=== PATIENT | male | born 1945 | race Two or more races ===

== ENCOUNTER 2021-06-13 20:38 | Inpatient (IN) | payer MEDICARE, OTHER ==
[~2021-06-13] VITALS: Ht 185.4 cm; Wt 81.6 kg
--- NOTE | 2021-06-13 20:57 | NUR ---
SENIOR STORAGE ADMINISTRATOR AT PT'S BEDSIDE
--- NOTE | 2021-06-13 21:01 | NUR ---
COVID SWAB COLLECTED AND SENT TO LAB
[2021-06-13] MEDS ORDERED: AMLO2.5T2 PO (21:05)
[2021-06-13] MEDS ORDERED: CYAN10006 IM (21:05)
[2021-06-13] MEDS ORDERED: DOCU100C36 PO (21:05)
[2021-06-13] MEDS ORDERED: DIVA250T PO (21:05)
--- NOTE | 2021-06-13 21:08 | NUR ---
PT TAKEN TO CT VIA [facility]
[2021-06-13 21:13] LABS: BASOPHILS # (AUTO) 0.1 K/uL (0.0-0.2); BASOPHILS % (AUTO) 1.3 % (0.0-2.0); EOSINOPHILS % (AUTO) 1.7 % (0.0-6.0); HEMATOCRIT 41 % (39-51); HEMOGLOBIN 14.1 g/dL (13.5-17.5); LYMPHOCYTES # (AUTO) 1.1 K/uL (0.8-4.8); LYMPHOCYTES % (AUTO) 20.7 % (20.0-44.0); MEAN CORPUSCULAR HGB CONC 34 g/dl (31.0-36.0); MEAN CORPUSCULAR VOLUME 98 fL (80-96); MONOCYTES # (AUTO) 0.6 K/uL (0.1-1.30); MONOCYTES % (AUTO) 11.5 % (2.0-12.0); NEUTROPHILS # (AUTO) 3.4 K/uL (1.8-8.9); NEUTROPHILS % (AUTO) 64.8 % (43.0-81.0); PLATELET COUNT (AUTO) 160 K/uL (150-450); RED BLOOD CELL COUNT(AUTO) 4.21 MIL/uL (4.5-6.0); WHITE BLOOD COUNT (AUTO) 5.2 K/uL (4.3-11.0)
--- NOTE | 2021-06-13 21:30 | NUR ---
URINE COLLECTED AND SENT TO LAB
--- NOTE | 2021-06-13 21:30 | NUR ---
MRSA SWAB COLLECTED AND SENT TO LAB. PATIENT'S BELONGINGS LIST DONE.
[2021-06-13 21:48] LABS: CALCIUM, SERUM 9.1 mg/dL (8.5-10.1); CARBON DIOXIDE 25 mmol/L (21-32); CHLORIDE 106 mmol/L (98-107); CREATININE 1.2 mg/dL (0.6-1.3); GLUCOSE 85 mg/dL (74-106); POTASSIUM 3.6 mmol/L (3.5-5.1); SODIUM SERUM 138 mmol/L (136-145); UREA NITROGEN, BLOOD 24 mg/dL (7-18)
[2021-06-13 21:54] LABS: ALANINE AMINOTRANSFERASE 27 U/L (12-78); ALBUMIN 3.3 g/dL (3.4-5.0); ALCOHOL, BLOOD < 3 mg/dL (0-0); ALKALINE PHOSPHATASE 71 U/L (46-116); ASPARTATE AMINOTRANSFERASE 17 U/L (15-37); BILIRUBIN,DIRECT 0.1 mg/dL (0.0-0.2); BILIRUBIN,TOTAL 0.5 mg/dL (0.2-1.0); TOTAL PROTEIN, SERUM 7.1 g/dL (6.4-8.2)
--- NOTE | 2021-06-13 22:03 | NUR ---
CALLED [facility] FOR PSYCH EVAL
[2021-06-13 22:08] LABS: BILIRUBIN,URINE NEGATIVE (NEGATIVE); COLOR,URINE YELLOW (YELLOW); LEUKOCYTE ESTERASE ,URINE NEGATIVE (NEGATIVE); NITRITE, URINE NEGATIVE (NEGATIVE); PROTEIN,URINE NEGATIVE (NEGATIVE); UGLUCOSE NEGATIVE (NEGATIVE); UROBILINOGEN,URINE 0.2 EU/dL (0.2)
--- NOTE | 2021-06-13 23:20 | NUR ---
ART, CLSW AT THE BED SIDE
--- NOTE | 2021-06-13 23:23 | NUR ---
Sanya gastelum in [facility] - 06/13/21 at 2358 by JOSE DENANA ORTEGA ASSESSMENT IN PROCESS
--- NOTE | 2021-06-13 23:27 | NUR ---
REPORT GIVEN TO MONTRELL BRAVO
--- NOTE | 2021-06-14 00:14 | NUR ---
TRANSFERRED TO GPS IN STABLE CONDITION
[2021-06-14] MEDS ORDERED: MAGNESIUM HYDROXIDE 30 ML UDC PO PRN (00:30)
[2021-06-14] MEDS ORDERED: MAG HYDROX/AL HYDROX/SIMETH 30 ML UDC PO PRN (00:30)
[2021-06-14] MEDS ORDERED: BLOOD SUGAR DIAGNOSTIC 1 EACH STRIP IN ONE (00:30)
[2021-06-14] MEDS: TEMAZEPAM 7.5 MG CAPSULE PO PRN ×2 (01:04→21:36)
--- NOTE | 2021-06-14 01:08 | NUR ---
GPS RN NOTES: RESTORIL 7.5MG GIVEN FOR SLEEP AT 0104. WILL CONTINUE TO MONITOR.
[2021-06-14] MEDS: ACETAMINOPHEN 325 MG TABLET PO PRN ×2 (01:13→21:02)
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
[2021-06-14] MEDS ORDERED: MAGN400O6 PO (07:57)
[2021-06-14] MEDS ORDERED: ACET-868 PO ×2 (07:57)
[2021-06-14 08:00] VITALS: BP 124/70
[2021-06-14] MEDS: AMLODIPINE BESYLATE 2.5 MG TABLET PO SCH (08:29)
[2021-06-14] MEDS: DOCUSATE SODIUM 100 MG CAPSULE PO SCH (08:29)
[2021-06-14] MEDS ORDERED: CYANOCOBALAMIN 1,000 MCG/ML VIAL IM SCH ×2 (09:00)
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
--- NOTE | 2021-06-14 09:59 | NUR ---
PANCHO Initial Discharge Note: Patient currently resides at [facility] located at [address] [place] [address]; ([phone]). PANCHO contacted Grant Devlin ([phone]) who stated that pt is welcomed back upon dc. PANCHO will work with the MD, treatment team, and family to help coordinate appropriate discharge.
--- NOTE | 2021-06-14 10:14 | NUR ---
PANCHO Family Contact: PANCHO contacted patient's son Rob ([phone]) and notified of pt's admission. SW left a detailed voicemail. PANCHO contacted patient's next of Kin Tonie ([phone]) and left a detailed voicemail.
--- NOTE | 2021-06-14 10:57 | NUR ---
PANCHO Family Contact: PANCHO spoke with Tonie pt's ex- ([phone]) who is notified of pt's admission and treatment/discharge plan. She expressed that she is the DPOA and will send the documents. She would want pt back to [place] when pt is stable.
[2021-06-14] MEDS: LORAZEPAM 0.5 MG TABLET PO PRN ×2 (11:13→17:56)
--- NOTE | 2021-06-14 11:16 | NUR ---
ATIVAN 0.5MG GIVEN FOR AGITATION. WILL CONTINUE TO MONITOR.
--- NOTE | 2021-06-14 12:28 | NUR ---
DR MOLINA CONTACTED WITH REGARDS TO DNR POLST. T/O GIVEN TO UPDATE CODE STATUS ACCORDINGLY.
[2021-06-14] MEDS: DIVALPROEX SODIUM 125 MG CAP.SPRINK PO SCH ×2 (13:25→17:13)
[2021-06-14 16:00] VITALS: BP 128/71
[2021-06-14] MEDS: risperiDONE 1 MG TABLET PO SCH (17:13)
--- NOTE | 2021-06-14 17:56 | NUR ---
ATIVAN 0.5MG GIVEN FOR AGITATION. WILL CONTINUE TO MONITOR.
[2021-06-14 20:00] VITALS: BP 117/75
--- NOTE | 2021-06-14 21:03 | NUR ---
GPS RN NOTES: PATIENT C/O BL KNEE PAIN. TYLENOL 650MG GIVEN PO AT 2102. WILL CONTINUE TO MONITOR.
--- NOTE | 2021-06-14 21:49 | NUR ---
GPS RN NOTES: RESTORIL 7.5MG GIVEN FOR SLEEP AT 6. WILL CONTINUE TO MONITOR.
--- NOTE | 2021-06-14 22:30 | NUR ---
GPS RN NOTES: UNABLE TO COLLECT URINE SAMPLE FROM PATIENT. PATIENT ALREADY VOIDED IN HIS DIAPER. WILL TRY AGAIN AND ENDORSE TO AM SHIFT.
[2021-06-15] MEDS: LORAZEPAM 0.5 MG TABLET PO PRN ×3 (04:24→21:56)
--- NOTE | 2021-06-15 04:28 | NUR ---
GPS RN NOTES: PATIENT ANXIOUS, RESTLESS, CONFUSED, AGITATED. ATIVAN 0.5MG 1TAB GIVEN PO AT 0424. WILL CONTINUE TO MONITOR.
[2021-06-15 07:27] LABS: ALBUMIN 3.5 g/dL (3.4-5.0); BILIRUBIN,TOTAL 0.7 mg/dL (0.2-1.0); CALCIUM, SERUM 9.5 mg/dL (8.5-10.1); CREATININE 1.1 mg/dL (0.6-1.3); POTASSIUM 3.4 mmol/L (3.5-5.1); TOTAL PROTEIN, SERUM 7.3 g/dL (6.4-8.2)
[2021-06-15 08:00] VITALS: BP 116/66
[2021-06-15] MEDS: DOCUSATE SODIUM 100 MG CAPSULE PO SCH (08:39)
[2021-06-15] MEDS: DIVALPROEX SODIUM 125 MG CAP.SPRINK PO SCH ×3 (08:39→16:43)
[2021-06-15] MEDS: risperiDONE 1 MG TABLET PO SCH ×3 (08:40→16:43)
[2021-06-15] MEDS: AMLODIPINE BESYLATE 2.5 MG TABLET PO SCH (08:40)
[2021-06-15 09:42] LABS: CHOLESTEROL 114 mg/dL (<200); HDL CHOLESTEROL 44 mg/dL (40-60); LDL 64 mg/dL (0-99); TRIGLYCERIDES 72 mg/dL (30-150)
--- NOTE | 2021-06-15 10:08 | NUR ---
DPOA DOCUMENTS: SW received DPOA documents from [facility] that ex- Tonie is DPOA. SW placed in pt's chart.
--- NOTE | 2021-06-15 11:29 | NUR ---
ATIVAN 0.5 MG FOR AGITATION GIVEN. WILL CONTINUE TO MONITOR.
[2021-06-15] MEDS ORDERED: POTASSIUM CHLORIDE 20 MEQ TAB.PRT.SR PO SCH (13:00)
--- NOTE | 2021-06-15 15:30 | NUR ---
CONDOM CATHETER IN PLACE TO COLLECT URINE SAMPLE.
[2021-06-15 16:00] VITALS: BP 114/76
--- NOTE | 2021-06-15 16:40 | NUR ---
URINE COLLECTED SUCCESSFULLY. CONDOM CATHETER REMOVED AND DISPOSED. PENIS GLANS INTACT.
[2021-06-15 17:44] LABS: BILIRUBIN,URINE NEGATIVE (NEGATIVE); COLOR,URINE YELLOW (YELLOW); LEUKOCYTE ESTERASE ,URINE NEGATIVE (NEGATIVE); NITRITE, URINE NEGATIVE (NEGATIVE); PROTEIN,URINE NEGATIVE (NEGATIVE); UGLUCOSE NEGATIVE (NEGATIVE); UROBILINOGEN,URINE 0.2 EU/dL (0.2)
[2021-06-15 20:00] VITALS: BP 124/71
[2021-06-15] MEDS: TEMAZEPAM 7.5 MG CAPSULE PO PRN (20:13)
[2021-06-16 08:00] VITALS: BP 152/98
[2021-06-16] MEDS: DOCUSATE SODIUM 100 MG CAPSULE PO SCH (08:39)
[2021-06-16] MEDS: AMLODIPINE BESYLATE 2.5 MG TABLET PO SCH (08:39)
[2021-06-16] MEDS: DIVALPROEX SODIUM 125 MG CAP.SPRINK PO SCH ×3 (08:40→16:22)
[2021-06-16] MEDS: risperiDONE 1 MG TABLET PO SCH ×3 (08:40→16:22)
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
[2021-06-16 16:00] VITALS: BP 112/62
[2021-06-16 20:00] VITALS: BP 116/73
[2021-06-16] MEDS: TEMAZEPAM 7.5 MG CAPSULE PO PRN (20:30)
--- NOTE | 2021-06-16 20:31 | NUR ---
Restoril 7.5 mg - capsule given to pt PRN for sleep, pt compliant and took medication.
[2021-06-16] MEDS: Z GUARD REMEDY 4 OZ OINT TP PRN (20:34)
[2021-06-16] MEDS: Z GUARD REMEDY 4 OZ OINT TP SCH (20:34)
--- NOTE | 2021-06-16 21:40 | NUR ---
1 hr post- PRN Restoril- pt still wide awake, provided pt quiet environment , kept pt clean and dry, will cont to monitor and anticipate needs
[2021-06-16] MEDS: LORAZEPAM 0.5 MG TABLET PO PRN (22:17)
--- NOTE | 2021-06-16 22:18 | NUR ---
PRN Ativan 0.5 mg /tab given to pt for episode of anxiety and agitation. Will cont to monitor
--- NOTE | 2021-06-17 00:35 | NUR ---
Pt remains awake,appears calm @ this time. Cont to monitor.
--- NOTE | 2021-06-17 02:15 | NUR ---
Pt only slept for few mins and now awake again, getting anxious and agitated. Cont to monitor closely.
--- NOTE | 2021-06-17 06:34 | NUR ---
Pt slept only approx 1 hr during shift, pt in his bed at this time, am care provided by manufacturing maintenance technician, bed alarm on, safety side rails up x 2 , bed lock and at lowest position. PT awake and calm - no s/sx of acute resp distress. Will endorse care to oncoming am nurse.
[2021-06-17 08:00] VITALS: BP 110/63
[2021-06-17] MEDS: risperiDONE 1 MG TABLET PO SCH ×4 (08:43→21:32)
[2021-06-17] MEDS: DOCUSATE SODIUM 100 MG CAPSULE PO SCH (10:16)
[2021-06-17] MEDS: DIVALPROEX SODIUM 125 MG CAP.SPRINK PO SCH ×3 (10:16→16:28)
[2021-06-17] MEDS: Z GUARD REMEDY 4 OZ OINT TP PRN (10:17)
[2021-06-17] MEDS: AMLODIPINE BESYLATE 2.5 MG TABLET PO SCH (10:17)
[2021-06-17] MEDS: Z GUARD REMEDY 4 OZ OINT TP SCH ×2 (10:18→21:28)
[2021-06-17 16:00] VITALS: BP 117/69
--- NOTE | 2021-06-17 16:23 | NUR ---
RN-NOTES RECEIVED T.O ORDER FROM DR. ADAM TO CHANGE RISPERDAL 1MG P.O TO Q HS INSTEAD OF 1700. NOTED AND CARRIED OUT.
--- NOTE | 2021-06-17 19:30 | NUR ---
GPS FLOAT RN OPENING NOTES PATIENT APPEARS CALM, RECEIVED IN TOM CHAIR. NO S/S OF APPARENT DISTRESS ON ROOM AIR. NOT EXHIBITING PAIN VIA FLACC. WILL CONTINUE TO MONITOR, ASSESS, AND RE-DIRECT PATIENT. WILL IMPLEMENT PLAN OF CARE PATIENT'S CONDITION PERMITS. WILL COLLABORATE WITH THERAPEUTIC TEAM TO REACH PATIENT'S GOAL AND DO Q15 VISUAL CHECKS TO ENSURE PATIENT SAFETY.
[2021-06-17 19:59] VITALS: BP 114/65
[2021-06-17 20:00] VITALS: BP 114/65
[2021-06-17] MEDS: TEMAZEPAM 7.5 MG CAPSULE PO SCH (21:32)
[2021-06-17] MEDS: LORAZEPAM 0.5 MG TABLET PO PRN (23:27)
--- NOTE | 2021-06-17 23:35 | NUR ---
GPS FLOAT RN NOTE PATIENT GETTING MORE AND MORE RESTLESS. GIVEN ATIVAN 0.5 AND ENCOURAGED MORE WATER INTAKE.
[2021-06-18 08:00] VITALS: BP 99/61
[2021-06-18] MEDS: DIVALPROEX SODIUM 125 MG CAP.SPRINK PO SCH ×3 (08:33→16:30)
[2021-06-18] MEDS: AMLODIPINE BESYLATE 2.5 MG TABLET PO SCH (08:33)
[2021-06-18] MEDS: risperiDONE 1 MG TABLET PO SCH ×4 (08:33→21:18)
[2021-06-18] MEDS: DOCUSATE SODIUM 100 MG CAPSULE PO SCH (08:33)
[2021-06-18] MEDS: Z GUARD REMEDY 4 OZ OINT TP SCH ×2 (08:58→21:17)
--- NOTE | 2021-06-18 09:53 | NUR ---
RN-NOTES SEEN PT. LEFT FOOT REDNESS AND STATED HE WILL PUT ORDERS.
[2021-06-18] MEDS: ENOXAPARIN SODIUM 40 MG/0.4 ML DISP.SYRIN SQ SCH (10:59)
[2021-06-18 16:00] VITALS: BP 128/68
--- NOTE | 2021-06-18 19:30 | NUR ---
GPS RN NOTE, RECEIVED PATIENT AWAKE AND IN BED, NO S/S OR COMPLAINTS OF PAIN AT THIS TIME. PATIENT IS DISPLAYING NO S/S OF APPARENT DISTRESS AT THIS TIME. PATIENT BREATHING IS UNLABORED WITH EQUAL RISE AND FALL OF THE CHEST. PATIENT IS ALERT AND ORIENTED X 1 ON ROOM AIR WITH A SPO2 95%. PATIENT IS COMPLIANT WITH MEDICATIONS, ANXIOUS, PARANOID, CONFUSED AT TIMES, EASILY IRRITABLE, AND COOPERATIVE. PATIENT DENIES SUICIDAL AND HOMICIDAL IDEATIONS AT THIS TIME. PATIENT ASSISTED WITH TURNING AND REPOSITIONING Q2HR AND PRN FOR COMFORT AND CIRCULATION. PATIENT HAS NO NEEDS AT THIS TIME. PATIENT EDUCATED ON THE USE OF THE CALL NUR. PATIENT BED SIDE RAILS UP X 2 FOR SAFETY. PATIENT BED IS LOCKED, LOW, WITH BED ALARM ON. WILL CONTINUE TO MONITOR THIS PATIENT Q15 MINUTES WITH THE HELP OF STAFF TO MAINTAIN SAFETY.
[2021-06-18 20:03] VITALS: BP 114/66
[2021-06-18] MEDS: TEMAZEPAM 7.5 MG CAPSULE PO SCH (21:18)
--- NOTE | 2021-06-18 21:18 | NUR ---
GPS RN NOTE, PATIENT HAS A SCHEDULED DOSE OF RESTORIL AT THIS TIME. PATIENT VITAL SIGNS ARE STABLE. GAVE RESTORIL 7.5MG PO HS ORDERED. WILL REASSESS FOR INSOMNIA AND I WILL CONTINUE TO MONITOR THIS PATIENT WITH THE HELP OF STAFF.
[2021-06-19 08:00] VITALS: BP 157/95
[2021-06-19] MEDS: Z GUARD REMEDY 4 OZ OINT TP SCH ×2 (08:56→21:01)
[2021-06-19] MEDS: AMLODIPINE BESYLATE 2.5 MG TABLET PO SCH (08:58)
[2021-06-19] MEDS: DOCUSATE SODIUM 100 MG CAPSULE PO SCH (08:58)
[2021-06-19] MEDS: DIVALPROEX SODIUM 125 MG CAP.SPRINK PO SCH ×3 (08:58→17:00)
[2021-06-19] MEDS: risperiDONE 1 MG TABLET PO SCH ×4 (08:58→21:02)
[2021-06-19] MEDS: ENOXAPARIN SODIUM 40 MG/0.4 ML DISP.SYRIN SQ SCH (13:11)
[2021-06-19 16:00] VITALS: BP 150/97
[2021-06-19 20:54] VITALS: BP 112/86
[2021-06-19] MEDS: TEMAZEPAM 7.5 MG CAPSULE PO SCH (21:02)
[2021-06-20 08:00] VITALS: BP 102/57
[2021-06-20] MEDS: risperiDONE 1 MG TABLET PO SCH ×4 (08:00→21:35)
[2021-06-20] MEDS: AMLODIPINE BESYLATE 2.5 MG TABLET PO SCH (08:50)
[2021-06-20] MEDS: DOCUSATE SODIUM 100 MG CAPSULE PO SCH (08:50)
[2021-06-20] MEDS: DIVALPROEX SODIUM 125 MG CAP.SPRINK PO SCH ×3 (08:50→17:02)
[2021-06-20] MEDS: Z GUARD REMEDY 4 OZ OINT TP SCH ×2 (08:51→21:34)
[2021-06-20 11:18] LABS: BASOPHILS % (AUTO) 0.2 % (0.0-2.0); EOSINOPHILS % (AUTO) 0.5 % (0.0-6.0); HEMATOCRIT 40 % (39-51); HEMOGLOBIN 13.6 g/dL (13.5-17.5); LYMPHOCYTES # (AUTO) 0.5 K/uL (0.8-4.8); LYMPHOCYTES % (AUTO) 8.2 % (20.0-44.0); MEAN CORPUSCULAR HGB CONC 34 g/dl (31.0-36.0); MEAN CORPUSCULAR VOLUME 98 fL (80-96); MONOCYTES # (AUTO) 0.7 K/uL (0.1-1.30); MONOCYTES % (AUTO) 12.4 % (2.0-12.0); NEUTROPHILS # (AUTO) 4.5 K/uL (1.8-8.9); NEUTROPHILS % (AUTO) 78.7 % (43.0-81.0); PLATELET COUNT (AUTO) 141 K/uL (150-450); RED BLOOD CELL COUNT(AUTO) 4.08 MIL/uL (4.5-6.0); WHITE BLOOD COUNT (AUTO) 5.7 K/uL (4.3-11.0)
--- NOTE | 2021-06-20 11:30 | NUR ---
Court Hearing: Patient's court hearing for 4730 was today and it was upheld for GD.
[2021-06-20 11:34] LABS: BILIRUBIN,TOTAL 0.8 mg/dL (0.2-1.0); CALCIUM, SERUM 8.6 mg/dL (8.5-10.1); CREATININE 1.2 mg/dL (0.6-1.3); MAGNESIUM 2.7 mg/dL (1.8-2.4); POTASSIUM 3.6 mmol/L (3.5-5.1); TOTAL PROTEIN, SERUM 6.7 g/dL (6.4-8.2)
[2021-06-20] MEDS: ENOXAPARIN SODIUM 40 MG/0.4 ML DISP.SYRIN SQ SCH (11:41)
[2021-06-20 16:00] VITALS: BP 104/67
[2021-06-20] MEDS: LORAZEPAM 0.5 MG TABLET PO PRN (17:37)
--- NOTE | 2021-06-20 17:37 | NUR ---
GPS RN NOTES PATIENT AGITATED, DOES NOT FOLLOW COMMAND. PRN ATIVAN ADMINISTERED.
--- NOTE | 2021-06-20 19:30 | NUR ---
GPS RN NOTE, RECEIVED PATIENT AWAKE AND IN BED, NO S/S OR COMPLAINTS OF PAIN AT THIS TIME. PATIENT IS DISPLAYING NO S/S OF APPARENT DISTRESS AT THIS TIME. PATIENT BREATHING IS UNLABORED WITH EQUAL RISE AND FALL OF THE CHEST. PATIENT IS ALERT AND ORIENTED X 1. PATIENT IS COMPLIANT WITH MEDICATIONS, ANXIOUS, PARANOID, CONFUSED AT TIMES, EASILY IRRITABLE, AND COOPERATIVE. PATIENT DENIES SUICIDAL AND HOMICIDAL IDEATIONS AT THIS TIME. PATIENT EDUCATED ON THE USE OF THE CALL NUR. PATIENT BED SIDE RAILS UP X 2 FOR SAFETY. PATIENT BED IS LOCKED, LOW, WITH BED ALARM ON. WILL CONTINUE TO MONITOR THIS PATIENT Q15 MINUTES WITH THE HELP OF STAFF TO MAINTAIN SAFETY. Addendum: 06/20/21 at 1931 by ALBERTO SHEPHERD RN CORRECTION PT IN TOM CHAIR IN ACTIVITY ROOM AT THIS TIME.
[2021-06-20 20:00] VITALS: BP 127/89
[2021-06-20] MEDS: TEMAZEPAM 7.5 MG CAPSULE PO SCH (21:35)
[2021-06-21 08:00] VITALS: BP 107/64
[2021-06-21] MEDS: risperiDONE 1 MG TABLET PO SCH ×4 (09:24→21:06)
[2021-06-21] MEDS: DIVALPROEX SODIUM 125 MG CAP.SPRINK PO SCH ×3 (09:25→17:00)
[2021-06-21] MEDS: DOCUSATE SODIUM 100 MG CAPSULE PO SCH (09:25)
[2021-06-21] MEDS: Z GUARD REMEDY 4 OZ OINT TP SCH ×2 (09:26→20:32)
[2021-06-21] MEDS: AMLODIPINE BESYLATE 2.5 MG TABLET PO SCH (09:26)
[2021-06-21] MEDS: ENOXAPARIN SODIUM 40 MG/0.4 ML DISP.SYRIN SQ SCH (11:18)
[2021-06-21 16:00] VITALS: BP 112/71
[2021-06-21 20:00] VITALS: BP 118/68
[2021-06-21] MEDS: LORAZEPAM 0.5 MG TABLET PO PRN (20:20)
[2021-06-21] MEDS: TEMAZEPAM 7.5 MG CAPSULE PO SCH (21:55)
[2021-06-22 08:00] VITALS: BP 125/68
[2021-06-22] MEDS: DIVALPROEX SODIUM 125 MG CAP.SPRINK PO SCH ×3 (08:30→16:21)
[2021-06-22] MEDS: risperiDONE 1 MG TABLET PO SCH ×3 (08:30→22:19)
[2021-06-22] MEDS: DOCUSATE SODIUM 100 MG CAPSULE PO SCH (08:30)
[2021-06-22] MEDS: AMLODIPINE BESYLATE 2.5 MG TABLET PO SCH (08:31)
[2021-06-22] MEDS: Z GUARD REMEDY 4 OZ OINT TP SCH ×2 (08:48→21:00)
[2021-06-22] MEDS: ENOXAPARIN SODIUM 40 MG/0.4 ML DISP.SYRIN SQ SCH (11:11)
[2021-06-22 16:00] VITALS: BP 143/87
[2021-06-22 20:00] VITALS: BP 112/51
[2021-06-22] MEDS: TEMAZEPAM 7.5 MG CAPSULE PO SCH (22:18)
[2021-06-23 08:00] VITALS: BP 119/69
[2021-06-23] MEDS: DOCUSATE SODIUM 100 MG CAPSULE PO SCH (08:44)
[2021-06-23] MEDS: AMLODIPINE BESYLATE 2.5 MG TABLET PO SCH (08:45)
[2021-06-23] MEDS: DIVALPROEX SODIUM 125 MG CAP.SPRINK PO SCH ×3 (08:45→16:56)
[2021-06-23] MEDS: risperiDONE 1 MG TABLET PO SCH ×3 (08:45→22:13)
[2021-06-23] MEDS: Z GUARD REMEDY 4 OZ OINT TP SCH ×2 (08:52→21:44)
[2021-06-23] MEDS: ENOXAPARIN SODIUM 40 MG/0.4 ML DISP.SYRIN SQ SCH (11:04)
[2021-06-23 16:00] VITALS: BP 116/64
[2021-06-23 20:00] VITALS: BP 133/86
[2021-06-23] MEDS: LORAZEPAM 0.5 MG TABLET PO PRN (20:18)
--- NOTE | 2021-06-23 20:21 | NUR ---
GPS RN NOTES: PATIENT IS RESTLESS, ANXIOUS, YELLING, CONFUSED, UNABLE TO FOLLOW REDIRECTIO. ATIVA 0.5MG GIVEN PO AT 2018. WILL CONTINUE TO MONITOR.
[2021-06-23] MEDS: TEMAZEPAM 7.5 MG CAPSULE PO SCH (22:13)
[2021-06-23] MEDS: ACETAMINOPHEN 325 MG TABLET PO PRN (22:15)
--- NOTE | 2021-06-24 06:44 | NUR ---
GPS RN CLOSING NOTES: PATIENT IS CURRENTLY SLEEPING IN BED. PATIENT SLEPT 7HR THIS SHIFT. NO S/S OF DISTRESS. RESPIRATION EVEN AND UNLABORED WITH EQUAL RISE AND FALL OF THE CHEST, ON ROOM AIR. ALL PATIENT CARE NEEDS HAVE BEEN MET AT THIS TIME. WILL CONTINUE TO MONITOR AND ENDORSE TO AM SHIFT.
[2021-06-24 08:00] VITALS: BP 109/65
[2021-06-24] MEDS: risperiDONE 1 MG TABLET PO SCH ×3 (08:53→21:30)
[2021-06-24] MEDS: DOCUSATE SODIUM 100 MG CAPSULE PO SCH (08:53)
[2021-06-24] MEDS: AMLODIPINE BESYLATE 2.5 MG TABLET PO SCH (08:53)
[2021-06-24] MEDS: DIVALPROEX SODIUM 125 MG CAP.SPRINK PO SCH ×3 (08:53→16:45)
[2021-06-24] MEDS: Z GUARD REMEDY 4 OZ OINT TP SCH ×2 (09:11→21:33)
[2021-06-24] MEDS: ENOXAPARIN SODIUM 40 MG/0.4 ML DISP.SYRIN SQ SCH (10:10)
[2021-06-24 11:12] LABS: BASOPHILS % (AUTO) 0.4 % (0.0-2.0); EOSINOPHILS % (AUTO) 1.1 % (0.0-6.0); HEMATOCRIT 40 % (39-51); HEMOGLOBIN 13.6 g/dL (13.5-17.5); LYMPHOCYTES # (AUTO) 0.6 K/uL (0.8-4.8); LYMPHOCYTES % (AUTO) 8.7 % (20.0-44.0); MEAN CORPUSCULAR HGB CONC 34 g/dl (31.0-36.0); MEAN CORPUSCULAR VOLUME 99 fL (80-96); MONOCYTES # (AUTO) 0.6 K/uL (0.1-1.30); MONOCYTES % (AUTO) 9.4 % (2.0-12.0); NEUTROPHILS # (AUTO) 5.3 K/uL (1.8-8.9); NEUTROPHILS % (AUTO) 80.4 % (43.0-81.0); PLATELET COUNT (AUTO) 143 K/uL (150-450); RED BLOOD CELL COUNT(AUTO) 4.04 MIL/uL (4.5-6.0); WHITE BLOOD COUNT (AUTO) 6.6 K/uL (4.3-11.0)
--- NOTE | 2021-06-24 11:34 | NUR ---
PANCHO Individual Therapy: SW attempted to conduct therapy. Pt was uncooperative and did not want to participate in therapy at this time.
[2021-06-24 11:43] LABS: ALBUMIN 2.8 g/dL (3.4-5.0); BILIRUBIN,TOTAL 0.5 mg/dL (0.2-1.0); CALCIUM, SERUM 8.8 mg/dL (8.5-10.1); CREATININE 1.1 mg/dL (0.6-1.3); TOTAL PROTEIN, SERUM 6.5 g/dL (6.4-8.2)
[2021-06-24 12:20] LABS: POTASSIUM 4.3 mmol/L (3.5-5.1)
[2021-06-24] MEDS: LORAZEPAM 0.5 MG TABLET PO PRN (14:13)
--- NOTE | 2021-06-24 14:15 | NUR ---
RN-NOTES PATIENT IN THE DAY ROOM UP IN THE TOM NOTE WITH AGITATION , BANGING TABLE WITH BOTH HANDS. REDIRECTED AND REORIENTED PATIENT. ATIVAN 0.5MG P.O GIVEN PRN ORDER. WILL CONT. MONITORING FOR SAFETY AND BEHAVIOR.
--- NOTE | 2021-06-24 15:15 | NUR ---
RN-NOTES PATIENT STILL IN THE DAY ROOM, AWAKE,ALERT CALM NO ACUTE DISTRESS NOTED.
[2021-06-24 16:00] VITALS: BP 110/68
[2021-06-24 20:35] VITALS: BP 128/78
[2021-06-24] MEDS: TEMAZEPAM 7.5 MG CAPSULE PO SCH (21:30)
[2021-06-24] MEDS: ACETAMINOPHEN 325 MG TABLET PO PRN (22:10)
--- NOTE | 2021-06-24 22:19 | NUR ---
GPS RN NOTES: PATIENT C/O BL KNEE PAIN. TYLENOL 650MG GIVEN PO AT 2210. WILL CONTINUE TO MONITOR.
[2021-06-25 08:00] VITALS: BP 126/76
[2021-06-25] MEDS: DOCUSATE SODIUM 100 MG CAPSULE PO SCH (08:45)
[2021-06-25] MEDS: AMLODIPINE BESYLATE 2.5 MG TABLET PO SCH (08:45)
[2021-06-25] MEDS: DIVALPROEX SODIUM 125 MG CAP.SPRINK PO SCH ×3 (08:45→16:28)
[2021-06-25] MEDS: risperiDONE 1 MG TABLET PO SCH ×3 (08:45→21:49)
[2021-06-25] MEDS: Z GUARD REMEDY 4 OZ OINT TP SCH ×2 (09:39→21:51)
[2021-06-25] MEDS: ENOXAPARIN SODIUM 40 MG/0.4 ML DISP.SYRIN SQ SCH (11:25)
[2021-06-25 16:00] VITALS: BP 126/84
[2021-06-25 19:52] VITALS: BP 123/77
[2021-06-25] MEDS: Z GUARD REMEDY 4 OZ OINT TP PRN (21:48)
[2021-06-25] MEDS: TEMAZEPAM 7.5 MG CAPSULE PO SCH (21:49)
[2021-06-25] MEDS: ACETAMINOPHEN 325 MG TABLET PO PRN (21:49)
--- NOTE | 2021-06-25 21:50 | NUR ---
GPS RN NOTES: PATIENT C/O BL KNEE PAIN. TYLENOL 650MG GIVEN PO AT 2149. WILL CONTINUE TO MONITOR.
[2021-06-26 08:00] VITALS: BP 110/69
[2021-06-26] MEDS: risperiDONE 1 MG TABLET PO SCH ×3 (09:02→21:25)
[2021-06-26] MEDS: Z GUARD REMEDY 4 OZ OINT TP SCH ×2 (09:02→21:30)
[2021-06-26] MEDS: DOCUSATE SODIUM 100 MG CAPSULE PO SCH (09:02)
[2021-06-26] MEDS: DIVALPROEX SODIUM 125 MG CAP.SPRINK PO SCH ×3 (09:02→16:41)
[2021-06-26] MEDS: AMLODIPINE BESYLATE 2.5 MG TABLET PO SCH (09:03)
[2021-06-26] MEDS: ENOXAPARIN SODIUM 40 MG/0.4 ML DISP.SYRIN SQ SCH (10:59)
[2021-06-26 16:00] VITALS: BP 106/69
[2021-06-26 20:00] VITALS: BP 104/67
[2021-06-26] MEDS: TEMAZEPAM 7.5 MG CAPSULE PO SCH (21:25)
--- NOTE | 2021-06-27 07:30 | NUR ---
Beginning of shift Report: In bed asleep this morning with no S/S of distress noted. Will continue to monitor.
[2021-06-27 08:00] VITALS: BP 145/89
[2021-06-27] MEDS: risperiDONE 1 MG TABLET PO SCH ×3 (09:43→21:19)
[2021-06-27] MEDS: DOCUSATE SODIUM 100 MG CAPSULE PO SCH (09:43)
[2021-06-27] MEDS: DIVALPROEX SODIUM 125 MG CAP.SPRINK PO SCH ×3 (09:44→16:38)
[2021-06-27] MEDS: AMLODIPINE BESYLATE 2.5 MG TABLET PO SCH (09:44)
[2021-06-27] MEDS: Z GUARD REMEDY 4 OZ OINT TP SCH ×2 (09:45→21:19)
[2021-06-27] MEDS: ENOXAPARIN SODIUM 40 MG/0.4 ML DISP.SYRIN SQ SCH (11:56)
--- NOTE | 2021-06-27 15:45 | NUR ---
SW Individual Therapy: SW met with patient at bedside for individual therapy regarding positive coping mechanisms. However, pt. is confused, disorganized and unable to engage in a meaningful conversation. SW will continue to asses patient's ability to engage in therapy.
[2021-06-27 16:00] VITALS: BP 125/62
--- NOTE | 2021-06-27 18:09 | NUR ---
Patient, med compliance, no s/s of distress, took all prescribed medications.verbally responsive with disorganized thoughts, pleasant. Will continue to monitor.
[2021-06-27 19:52] VITALS: BP 118/73
[2021-06-27] MEDS: TEMAZEPAM 7.5 MG CAPSULE PO SCH (22:29)
[2021-06-28 07:46] LABS: BASOPHILS % (AUTO) 0.4 % (0.0-2.0); EOSINOPHILS % (AUTO) 2.3 % (0.0-6.0); HEMATOCRIT 40 % (39-51); HEMOGLOBIN 13.5 g/dL (13.5-17.5); LYMPHOCYTES # (AUTO) 0.7 K/uL (0.8-4.8); LYMPHOCYTES % (AUTO) 14.4 % (20.0-44.0); MEAN CORPUSCULAR HGB CONC 34 g/dl (31.0-36.0); MEAN CORPUSCULAR VOLUME 99 fL (80-96); MONOCYTES # (AUTO) 0.9 K/uL (0.1-1.30); NEUTROPHILS # (AUTO) 3.4 K/uL (1.8-8.9); NEUTROPHILS % (AUTO) 64.9 % (43.0-81.0); PLATELET COUNT (AUTO) 163 K/uL (150-450); RED BLOOD CELL COUNT(AUTO) 4.07 MIL/uL (4.5-6.0); WHITE BLOOD COUNT (AUTO) 5.2 K/uL (4.3-11.0)
[2021-06-28 08:00] VITALS: BP 116/71
[2021-06-28 08:16] LABS: ALBUMIN 2.7 g/dL (3.4-5.0); BILIRUBIN,TOTAL 0.5 mg/dL (0.2-1.0); CALCIUM, SERUM 8.5 mg/dL (8.5-10.1); CREATININE 1.1 mg/dL (0.6-1.3); POTASSIUM 4.1 mmol/L (3.5-5.1); TOTAL PROTEIN, SERUM 6.4 g/dL (6.4-8.2)
[2021-06-28] MEDS: AMLODIPINE BESYLATE 2.5 MG TABLET PO SCH (09:00)
[2021-06-28] MEDS: Z GUARD REMEDY 4 OZ OINT TP SCH ×2 (10:15→21:49)
[2021-06-28] MEDS: DIVALPROEX SODIUM 125 MG CAP.SPRINK PO SCH ×4 (10:15→17:27)
[2021-06-28] MEDS: risperiDONE 1 MG TABLET PO SCH ×4 (10:16→21:49)
[2021-06-28] MEDS: DOCUSATE SODIUM 100 MG CAPSULE PO SCH (10:16)
[2021-06-28] MEDS: ENOXAPARIN SODIUM 40 MG/0.4 ML DISP.SYRIN SQ SCH (13:13)
--- NOTE | 2021-06-28 15:21 | NUR ---
SLEPT ALL MORNING,MEDS GIVEN LATE.
[2021-06-28 15:57] LABS: LYMPHOCYTES % (MANUAL) 16 % (16-48); MONOCYTES % (MANUAL) 21 % (0-11.0); NEUTROPHILS % (MANUAL) 63 (42-76)
[2021-06-28 16:00] VITALS: BP 112/67
--- NOTE | 2021-06-28 17:53 | NUR ---
AFFECT VERY FLAT VS TAKEN.BP123/69,POX 100%,RR16,HEART RATE 109,T 98.2.ERICK. MEDS HELD.COMPETITIVE INTELLIGENCE ANALYST IN TO EVALUATE PT. STATUS.PT. SITTING UP IN TOM CHAIR.JUST FINISHED BEING FED 100% OF DINNER.
[2021-06-28 20:31] VITALS: BP 108/72
[2021-06-28] MEDS: TEMAZEPAM 7.5 MG CAPSULE PO SCH (21:49)
[2021-06-29 08:00] VITALS: BP 114/69
--- NOTE | 2021-06-29 08:56 | NUR ---
PANCHO Family Contact: PANCHO spoke with Tonie pt's ex- ([phone]) ([phone]) and stated that pt will be discharged back to [facility] 06/30.
[2021-06-29] MEDS: DOCUSATE SODIUM 100 MG CAPSULE PO SCH (09:09)
[2021-06-29] MEDS: DIVALPROEX SODIUM 125 MG CAP.SPRINK PO SCH ×3 (09:09→17:22)
[2021-06-29] MEDS: AMLODIPINE BESYLATE 2.5 MG TABLET PO SCH (09:10)
[2021-06-29] MEDS: risperiDONE 1 MG TABLET PO SCH ×3 (09:10→22:00)
--- NOTE | 2021-06-29 09:30 | NUR ---
RN-CO: OFFERED WATER TO PATIENT.
[2021-06-29] MEDS: Z GUARD REMEDY 4 OZ OINT TP SCH ×2 (10:35→21:00)
[2021-06-29] MEDS: ENOXAPARIN SODIUM 40 MG/0.4 ML DISP.SYRIN SQ SCH (11:09)
--- NOTE | 2021-06-29 11:15 | NUR ---
RN-CO: OFFERED WATER TO PATIENT.
--- NOTE | 2021-06-29 14:00 | NUR ---
RN-CO: OFFERED WATER TO PATIENT.
[2021-06-29 16:00] VITALS: BP 126/58
--- NOTE | 2021-06-29 16:00 | NUR ---
RN-CO: OFFERED WATER TO PATIENT BUT SPITTED IT.
[2021-06-29 20:11] VITALS: BP 100/68
[2021-06-29] MEDS: TEMAZEPAM 7.5 MG CAPSULE PO SCH (22:01)
[2021-06-30 08:00] VITALS: BP 113/67
--- NOTE | 2021-06-30 08:02 | NUR ---
SW Discharge Note: Patient will be discharged to group home facility [facility] [address] [place] [address]; ([phone]). Please arrange transportation at 1PM. Swimming Pool Maintenance Supervisor spoke with Grant ramirez at [facility] ([phone]) who stated patient will be accepted at facility today. Patient is alert and oriented x1 and is not able to plan for self-care at this time but is willing to accept care provided at the facility. Patient denies suicidal or homicidal ideation. Patients DPOA ex- Tonie ([phone]) is aware and agreeable with discharge. Patient will follow-up with (Psychiatrist) Dr. Lopez [address] [facility] [address], [place] [address]; ([phone]) and [employer] Dr. White [address] [facility] [address], [place] [address]; ([phone]). Patient presents with euthymic mood and congruent affect.
[2021-06-30] MEDS: DOCUSATE SODIUM 100 MG CAPSULE PO SCH (08:47)
[2021-06-30] MEDS: risperiDONE 1 MG TABLET PO SCH (08:47)
[2021-06-30 08:48] VITALS: BP 113/67
[2021-06-30] MEDS: DIVALPROEX SODIUM 125 MG CAP.SPRINK PO SCH ×2 (08:48→12:05)
[2021-06-30] MEDS: AMLODIPINE BESYLATE 2.5 MG TABLET PO SCH (08:48)
--- NOTE | 2021-06-30 09:25 | NUR ---
Dr. Lopez gave an order to D/C hold and D/C to [facility], to continue same meds including prn and to follow up with psych and medical doctors. Dr. White made aware of the discharge and reconciled the meds. Belongings ready and discharge papers ready. pt. without distress, denies suicidal and homicidal.
[2021-06-30] MEDS: Z GUARD REMEDY 4 OZ OINT TP SCH (09:31)
[2021-06-30] MEDS: ENOXAPARIN SODIUM 40 MG/0.4 ML DISP.SYRIN SQ SCH (10:53)
--- NOTE | 2021-06-30 11:31 | NUR ---
Report given to Madeline STOCK over the facility and pictures taken for skin issues and pt. is very cooperative.
--- NOTE | 2021-06-30 13:20 | NUR ---
Pt. left the unit via ambulance and transported via a gurney. Left without distress and no agitation noted. V/S taken: BP 130/77, NE 98, RR 16 and oxygen sat 100%.
== END 2021-06-30 13:20 | DRG 885 ==
LOC: ER 20:40 → GPS 23:28
PROVIDERS: ADMIT Psychiatry & Neurology Psychosomatic Medicine; ATTEND Internal Medicine
DX: F25.0 Schizoaffective disorder, bipolar type (principal); F23 Brief psychotic disorder; F03.90 Unspecified dementia, unspecified severity, without behavioral disturbance, psychotic disturbance, mood disturbance, and anxiety; F39 Unspecified mood [affective] disorder; K59.00 Constipation, unspecified; I10 Essential (primary) hypertension; Z20.822 Contact with and (suspected) exposure to COVID-19; Z79.899 Other long term (current) drug therapy; F22 Delusional disorders; E87.6 Hypokalemia; M79.89 Other specified soft tissue disorders
CPT/HCPCS: 36415; 70450-TC; 71045-TC; 80048-TC; 80053-TC; 80061-TC; 80076-TC; 80164-TC; 82962-TC; 83735-TC; 84443-TC; 84484-TC; 85025-TC; 87081-TC; 93970-TC; 97116-TC; 97530-TC; A4349; C9803; G0480; J1650; J3420